=== PATIENT | male | born 1980 | race Caucasian/White ===

== ENCOUNTER 2020-06-13 08:22 | Outpatient (CLI) | payer BC, SELFPAY ==
--- NOTE | 2020-07-07 00:21 | WPDHOMESLEEP ---
Sleep Study - Home Date of Study: 06/13/20 Ordering Provider: Hansel Morales MD Interpreting Physician: Dinorah Shannon MD Home Sleep Study Type: Apnea Link Air Height: 1.7 m Weight: 90.718 kg Body Mass Index: 31.3 Neck Circumference (inches): 15.3 [place]: 12 Reason for Sleep Study Loud snoring Sleep History Michael Davies is a 39 yo man with a history of loud snoring reported by his , For 10-15 years. He does not awaken at night with heartburn, belching or coughing. He does not awaken from sleep feeling short of breath. He does not have problem sleep with a cold and he does not gasp at night. He rarely has breathing problems at night reported to by others. He does not sweat excessively at night or notices his heart pounding or beating irregularly during sleep. He occasionally falls asleep during the day rarely involuntarily were rarely while driving. He does not fall asleep during physical effort. He does not have loss of muscle tone was strong emotion. He rarely has daytime difficulties due to excessive sleepiness. He works as an senior financial accountant. He does not feel paralyzed on waking or falling asleep, does not have vivid dreamlike scenes upon awakening or falling asleep. He has never freight to go to sleep. He does not have nightmares and he does not remember his dreams. He rarely has racing thoughts. He occasionally feels sad depressed and rarely anxious. He occasionally has muscular tension. He does not notice part of his body jerking, he does not kick at night and he does not have [place] feelings in his legs at night. He does not have leg pain at night. He denies morning jaw pain. He occasionally grinds his teeth at night. He is not bothered by pain during the day or night. He occasionally wakes up feeling stiff in the morning with sore muscles and pain in the spine. Normal bedtime is 10:00 p.m. falling asleep within half an hour waking once at most for 5 minutes to go to the bathroom. He wakes in the morning at 7:00 a.m.. We can schedule shows he goes to bed at midnight and wakes about 8:00 a.m.. He does not take naps. Short naps are not refreshing. He feels good most mornings. He feels better in the morning then other times of day. Habits: Tobacco less than 1 pack per day. He drinks coffee daily. He drinks alcohol on the weekends. [facility] Past Medical History Medical History (Updated 07/07/20 @ 08:47 by Dinorah Shannon MD) Allergies Anxiety Depression External hemorrhoid Family History Family History Father Hypertension Mother Patient's mother is in good health Grandparent Diabetes mellitus Cerebrovascular accident Other Family history of malignant neoplasm Social History Social History Smoking status: Current some day smoker Smoking end date: 09/09/17 Alcohol intake: current Medications Home Medications Medication Instructions Recorded Confirmed Type paroxetine HCl 30 mg tablet 30 mg PO DAILY #90 tablet 03/29/20 Rx cetirizine 10 mg capsule 10 mg PO DAILY 05/11/20 History Sleep Procedure This test was performed using 4 channel monitoring including respiratory effort channel, snoring channel, heart rate channel, and oxygen saturation channel. This study was scored using CMS guidelines. Sleep Architecture Not applicable for home sleep test. Respiratory Analysis The apnea-hypopnea index is 40, severely elevated. He had 197 apneas. The majority of his apneas 53%, 104 apneas, were obstructive, 30% of the apneas or 59 apneas were central and 17% or 34 apneas were mixed. He had 59 hypopneas. Oximetry Data Oxygen desaturation index is 30, average saturation 95%, lowest desaturation is 84%. He desaturated 256 times and spent 8 minutes or 2% of the study below 88% saturation. Snoring Profile He had 223 snoring episodes. Cardiac Profile Heart rate ran
[2020-07-07 08:52] VITALS: BMI 31.3
== END 2020-06-13 08:23 | disposition home or self-care (01) ==
LOC: ANHCSM 08:27
PROVIDERS: PCP Internal Medicine; Visit Provider Internal Medicine Critical Care Medicine
DX: G47.33 Obstructive sleep apnea (adult) (pediatric) (principal); R06.83 Snoring; F32.9 Major depressive disorder, single episode, unspecified; F17.200 Nicotine dependence, unspecified, uncomplicated
CPT/HCPCS: 95806

== ENCOUNTER 2020-09-21 00:49 | Outpatient (CLI) | payer BC, SELFPAY ==
[2020-09-21 18:18] LABS: SARS-CoV-2 RNA PCR Negative
== END 2020-09-21 00:50 | disposition home or self-care (01) ==
LOC: ANHCOVIDDT 00:50
PROVIDERS: PCP Internal Medicine; Visit Provider Internal Medicine Critical Care Medicine
DX: Z01.812 Encounter for preprocedural laboratory examination (principal); Z20.822 Contact with and (suspected) exposure to COVID-19
CPT/HCPCS: C9803; U0003; U0005

== ENCOUNTER 2020-09-23 08:58 | Outpatient (CLI) | payer BC, SELFPAY ==
--- NOTE | 2020-10-05 17:42 | WPDSLEEPSTUD ---
Sleep Study Date of Study: 09/23/20 Ordering Provider: Beni Castaneda APRN; primary care is James Carbajal DO Interpreting Physician: Dinorah Shannon MD Sleep Study Type: CPAP Titration Height: 1.7 m Weight: 90.7 kg Body Mass Index: 31.4 Neck Circumference: 38.86 cm [place]: 12 Reason for Sleep Study Home sleep test on 06/13/2020 with severe obstructive sleep apnea, desaturation 84%, AHI 40, 53% obstructive apneas and 47% central and mixed apneas, now present for a titration Sleep History Michael Davies is s 39 year-old man who had an apnea link home sleep test on 06/13/2020. This showed severe obstructive sleep apnea with an AHI of 40, 53% of the events were obstructive and 47% were scored as central or mixed. He desaturated to 84%. He presents for a CPAP titration as an oral appliance is not an option for severe sleep apnea, only for mild or moderate obstructive sleep apnea. He has a history of loud snoring reported by his , for at least 10-15 years. He does not awaken at night with heartburn, belching or coughing. He does not awaken from sleep feeling short of breath. He does not have problems sleeping with a cold and he does not gasp at night. He rarely has breathing problems at night reported to him by others. He does not sweat excessively at night or notice his heart pounding or beating irregularly during sleep. He occasionally falls asleep during the day, rarely involuntarily, rarely while driving. He does not fall asleep during physical effort. He does not have loss of muscle tone with strong emotion. He rarely has daytime difficulties due to excessive sleepiness. He works as an machinist. He does not feel paralyzed on waking or falling asleep, nor does he have vivid dreamlike scenes upon awakening or falling asleep. He is never afraid to go to sleep. He does not have nightmares and he does not remember his dreams. He rarely has racing thoughts. He occasionally feels sad or depressed, and rarely feels anxious. He occasionally has muscular tension. He does not notice parts of his body jerking, he does not kick at night and he does not have crawly or aching feelings in his legs at night. He does not have leg pain at night. He denies morning jaw pain. He occasionally grinds his teeth at night. He is not bothered by pain during the day or night. He occasionally wakes up feeling stiff in the morning with sore muscles and pain in the spine. Normal bedtime is 10:00 p.m., falling asleep within half an hour, waking once at most during the night for 5 minutes to go to the bathroom. He wakes in the morning at 7:00 a.m.. Weekend schedule shows he goes to bed at midnight and wakes about 8:00 a.m.. He does not take naps. Short naps are not refreshing. He feels good most mornings. He feels better in the morning compared to other times of day. Habits: Tobacco less than 1 pack per day. He drinks coffee daily. He drinks alcohol on the weekends. [facility] Past Medical History Medical History Allergies Anxiety Depression External hemorrhoid Family History Family History Father Hypertension Mother Patient's mother is in good health Grandparent Diabetes mellitus Cerebrovascular accident Other Family history of malignant neoplasm Social History Social History Smoking status: Current some day smoker Smoking end date: 09/09/17 Alcohol intake: current Medications Home Medications Medication Instructions Recorded Confirmed Type paroxetine HCl 30 mg tablet 30 mg PO DAILY #90 tablet 03/29/20 Rx cetirizine 10 mg capsule 10 mg PO DAILY 05/11/20 History Sleep Procedure This test [facility] channel system including EOG, EEG, submental EMG, EKG, nasal and oral airflow using thermistors and nasal pressure sensors
[2020-10-05 18:14] VITALS: BMI 31.4
== END 2020-09-23 08:59 | disposition home or self-care (01) ==
LOC: ANHCSM 09:00
PROVIDERS: PCP Internal Medicine; Visit Provider Nurse Practitioner Family
DX: G47.33 Obstructive sleep apnea (adult) (pediatric) (principal)
CPT/HCPCS: 95811

== ENCOUNTER 2022-12-13 09:40 | Outpatient (CLI) | payer BC, SELFPAY ==
[2022-12-13 18:38] LABS: Basophils Percent Auto 0.8 % (0.2-1.2); Eosinophils Absolute Auto 0.2 K/mm3 (0-0.3); Eosinophils Percent Auto 3.9 % (0-4.4); Hematocrit 45.7 % (42.0-52.0); Hemoglobin 15.1 g/dL (14.0-18.0); Immature Granulocyte Absolute 0.01 K/mm3 (0.00-0.031); Immature Granulocyte Percent A 0.2 % (0-0.5); Lymphocytes Percent Auto 36.5 % (18.3-44.2); Mean Corpuscular Hemoglobin 29.5 pg (26-34); Mean Corpuscular Volume 89.3 fl (80-100); Mean Platelet Volume 10.1 fl (7.4-10.4); Monocytes Absolute Auto 0.4 K/mm3 (0.1-0.6); Monocytes Percent Auto 7.9 % (2.6-8.5); Neutrophils Absolute Auto 2.5 K/mm3 (1.3-6.7); Neutrophils Percent Auto 50.7 % (45.5-73.1); Platelet Count Result 279 k/mm3 (150-375); Red Blood Count 5.12 M/mm3 (4.6-6.20); Red Cell Distribution Width 13.4 % (11.5-14.5); White Blood Count 4.9 K/mm3 (4.5-10.0)
[2022-12-13 21:05] LABS: Alanine Aminotransferase 40 U/L (6-50); Albumin Level 4.9 g/dL (3.5-5.1); Alkaline Phosphatase 87 U/L (38-126); Anion Gap 9 mmol/L (8-16); Aspartate Amino Transferase 36 U/L (17-59); Bilirubin,Total 0.9 mg/dL (0.2-1.3); Blood Urea Nitrogen 15 mg/dL (9-20); Calcium 9.4 mg/dL (8.4-10.2); Carbon Dioxide 24 mmol/L (22-30); Chloride 105 mmol/L (98-107); Cholesterol 240 mg/dL (0-200); Estimated Glomerular Filt Rate > 60; Glucose 96 mg/dL (65-110); HDL Direct 46 mg/dL; Potassium 5.7 mmol/L (3.4-5.0); Sodium 138 mmol/L (137-145); Triglycerides 164 mg/dL (<150)
[2022-12-13 21:27] LABS: LDL Cholesterol Direct 117 mg/dL
== END 2022-12-13 09:41 | disposition home or self-care (01) ==
LOC: ANHGOSHLAB 09:40
PROVIDERS: PCP Internal Medicine; Visit Provider Nurse Practitioner
DX: E78.5 Hyperlipidemia, unspecified (principal); F41.9 Anxiety disorder, unspecified
CPT/HCPCS: 36415; 80053; 80061; 84443; 85025

== ENCOUNTER 2022-12-20 08:13 | Outpatient (CLI) | payer BC, SELFPAY ==
[2022-12-20 18:41] LABS: Potassium 4.1 mmol/L (3.4-5.0)
== END 2022-12-20 08:14 | disposition home or self-care (01) ==
LOC: ANHGOSHLAB 08:14
PROVIDERS: PCP Internal Medicine; Visit Provider Nurse Practitioner
DX: E87.5 Hyperkalemia (principal)
CPT/HCPCS: 36415; 84132